=== PATIENT | female | born 1945 | race Caucasian/White ===

== ENCOUNTER → 2020-01-08 | Outpatient (CLI) | payer BC ==
[~2020-01-08] MED LIST: ATEN50 PO; Alph-E-Mixed400 UNIT; B-125000 MC1; CHOL10002; Dyazide 37.5-21 EACH PO; EYE HEALTH ADU1 EACH PO; FISH OIL 1,2001 EACH; Multiple Vitam1 EAC1
== END | disposition home or self-care (01) ==
LOC: LAB SHORT 11:19 → PLD 11:19
DX: C44.311 Basal cell carcinoma of skin of nose (principal); D04.4 Carcinoma in situ of skin of scalp and neck
CPT/HCPCS: 88305

== ENCOUNTER 2021-08-26 12:42 | Day surgery (SDC) | payer BC ==
[~2021-08-26] VITALS: Ht 162.6 cm; Wt 51.3 kg
== END 2021-08-26 15:10 | disposition home or self-care (01) ==
LOC: ORSCSDS 12:42
PROVIDERS: Internal Medicine Gastroenterology
PROC: 0DBE8ZX Excision of Large Intestine, Via Natural or Artificial Opening Endoscopic, Diagnostic (ICD-10-PCS; principal; 2021-08-26 14:00)
DX: R19.7 Diarrhea, unspecified (principal); Z86.010 Personal history of colon polyps; K52.832 Lymphocytic colitis; K57.30 Diverticulosis of large intestine without perforation or abscess without bleeding; Z79.899 Other long term (current) drug therapy
CPT/HCPCS: 88305; J2704; J7120

== ENCOUNTER → 2022-09-22 | Outpatient (CLI) | payer BC | END | disposition home or self-care (01) | LOC: PLD 14:45 → LAB SHORT 14:45 | DX: C44.219 Basal cell carcinoma of skin of left ear and external auricular canal (principal) | CPT/HCPCS: 88305 ==

== ENCOUNTER → 2022-12-09 | Outpatient (CLI) | payer BC | END | disposition home or self-care (01) | LOC: LAB SHORT 12:20 | DX: C44.311 Basal cell carcinoma of skin of nose (principal) | CPT/HCPCS: 88305 ==

== ENCOUNTER → 2023-01-03 | Outpatient (CLI) | payer BC | END | disposition home or self-care (01) | LOC: LAB SHORT 10:02 → PLD 10:02 | DX: L57.0 Actinic keratosis (principal); D04.5 Carcinoma in situ of skin of trunk | CPT/HCPCS: 88305 ==